=== PATIENT | female | born 1935 | race Hispanic/Latino ===

== ENCOUNTER 2019-11-15 13:29 | Outpatient (CLI) | payer MEDICARE ==
[2019-11-15] MEDS ORDERED: Magnevist 469MG/ML 20 ML VIAL ONE (13:45)
--- NOTE | 2019-11-15 14:35 | RAD ---
XR Chest 1 View HISTORY: MRI clearance loop recorder COMPARISON: None FINDINGS: The heart size is normal. The lungs are well expanded without focal areas of consolidation, pneumothorax or pleural effusions. There are postop changes of right rotator cuff surgery. A LOOP RECORDER DEVICE IS SEEN IN THE LEFT LOWER CHEST.
--- NOTE | 2019-11-15 15:38 | MRI ---
MRI OF BRAIN WITH AND WITHOUT IV CONTRAST: 11/15/19 HISTORY: Cognitive change. COMPARISON: 11/05/16. FINDINGS: No restricted diffusion is seen. Foci of T2 prolongation in the periventricular white matter, consist ent with chronic small vessel ischemic disease are again seen. No evidence of infarct, hemorrhage, ma ss, midline shift, or abnormal extra-axial fluid collection is noted. No abnormal postcontrast enhanc ement is seen. The ventricular size is stable and the basilar cisterns are patent. An empty sella is again noted. Th e visualized paranasal sinuses and mastoid air cells are well aerated. IMPRESSION: Mild chronic small vessel ischemic disease. No evidence of acute intracranial process or mass. POS: [facility]
== END 2019-11-15 13:30 | disposition home or self-care (01) ==
LOC: BICMRI 13:29
PROVIDERS: ATTEND Nurse Practitioner Acute Care
DX: R41.89 Other symptoms and signs involving cognitive functions and awareness (principal); I67.82 Cerebral ischemia
CPT/HCPCS: 70553; 71045; 82565; A9579

== ENCOUNTER 2021-02-27 15:40 | Emergency (ER) | payer OTHER, MEDICARE ==
[2021-02-27 16:21] LABS: ALT (SGPT) 12 U/L (8-55); AST (SGOT) 14 U/L (5-34); Albumin 4.2 g/dL (3.4-4.8); Alkaline Phosphatase 53 U/L (40-110); Anion Gap 14 mmol/L (10-20); BUN (Urea Nitrogen) 19 mg/dL (9.8-20.1); Bilirubin, Total 0.3 mg/dL (0.2-1.2); Calc. Creatinine Clearance 0 mL/min (70-130); Calcium 9.4 mg/dL (7.8-10.44); Carbon Dioxide 25 mmol/L (23-31); Chloride 99 mmol/L (98-107); Globulin 2.8 g/dL (2.4-3.5); Glucose 129 mg/dL (83-110); Potassium 4.7 mmol/L (3.5-5.1); Sodium 133 mmol/L (136-145)
[2021-02-27] MEDS ORDERED: Boostrix 0.5 ML (Tdap) VIAL ONE (16:35)
[2021-02-27 16:55] LABS: #Basophils 0.1 thou/uL (0.0-0.2); #Eosinphils 0.4 thou/uL (0.0-0.7); #Lymphocytes 3.1 thou/uL (1.20-3.40); #Monocytes 0.6 thou/uL (0.11-0.59); #Neutrophils 5.5 thou/uL (1.40-6.50); %Eosinophils 3.7 % (0.0-10.0); %Lymphocytes 32.1 % (21.0-51.0); %Monocytes 6.5 % (0.0-10.0); %Neutrophils 56.8 % (42.0-75.0); Mean Corpuscular HGB CONC 34.1 g/dL (32.0-36.0); Mean Corpuscular Hemoglobin 30.5 pg (27.0-31.0); Mean Corpuscular Volume 89.4 fL (78.0-98.0); Mean Platelet Volume 7.3 fL (7.4-10.4); Platelet Count 345 thou/uL (130-400); RBC Distribution Width 12.3 % (11.5-14.5); Red Blood Cell (RBC) Count 3.94 mill/uL (4.20-5.40); White Blood Cell (WBC) Count 9.8 thou/uL (4.8-10.8)
[2021-02-27 16:56] LABS: INR-International Normal Ratio 1.2
== END 2021-02-27 18:15 | disposition home or self-care (01) ==
LOC: ERS 15:40
DX: S50.01XA Contusion of right elbow, initial encounter (principal); S80.11XA Contusion of right lower leg, initial encounter; I10 Essential (primary) hypertension; R00.0 Tachycardia, unspecified; V49.9XXA Car occupant (driver) (passenger) injured in unspecified traffic accident, initial encounter
CPT/HCPCS: 36415; 70450; 71260; 72125; 74177; 80053; 85025; 85610; 85730; 90471; 90715; 93005; G0390

== ENCOUNTER 2022-03-10 14:21 | Outpatient (CLI) | payer MEDICARE | END 2022-03-10 14:22 | disposition home or self-care (01) | LOC: LABBT 14:21 | PROVIDERS: ATTEND Internal Medicine Gastroenterology | DX: Z20.822 Contact with and (suspected) exposure to COVID-19 (principal) | CPT/HCPCS: 87811 ==

== ENCOUNTER 2022-03-13 07:52 | Day surgery (SDC) | payer MEDICARE ==
[2022-03-12 08:51] VITALS: BMI 29.7
[2022-03-13] MEDS ORDERED: PROPOFOL 200 MG/20 ML VIAL ONE (10:00)
[2022-03-13] MEDS ORDERED: Lidocaine 1% PF 5 ML VIAL ONE (10:00)
[2022-03-13] MEDS ORDERED: ePHEDrine 50 MG/ML VIAL ONE (10:00)
== END 2022-03-13 11:04 | disposition home or self-care (01) ==
LOC: SDC 07:52
PROVIDERS: ATTEND Internal Medicine Gastroenterology
PROC: 0DJ08ZZ Inspection of Upper Intestinal Tract, Via Natural or Artificial Opening Endoscopic (ICD-10-PCS; principal; 2022-03-13)
PROC: 0D757ZZ Dilation of Esophagus, Via Natural or Artificial Opening (ICD-10-PCS; 2022-03-13)
DX: R13.10 Dysphagia, unspecified (principal); K25.9 Gastric ulcer, unspecified as acute or chronic, without hemorrhage or perforation; K29.70 Gastritis, unspecified, without bleeding; K21.9 Gastro-esophageal reflux disease without esophagitis; I10 Essential (primary) hypertension; E78.5 Hyperlipidemia, unspecified; I48.91 Unspecified atrial fibrillation; Z86.010 Personal history of colon polyps; Z79.82 Long term (current) use of aspirin; Z79.890 Hormone replacement therapy; Z79.899 Other long term (current) drug therapy; Z88.0 Allergy status to penicillin; Z88.1 Allergy status to other antibiotic agents; Z88.2 Allergy status to sulfonamides; Z88.5 Allergy status to narcotic agent; Z88.8 Allergy status to other drugs, medicaments and biological substances
CPT/HCPCS: J2704; J3490

== ENCOUNTER 2025-08-18 21:45 | Inpatient (IN) | payer MEDICARE ==
[2025-08-18] MEDS ORDERED: Calcium Carbonate 500 MG ChewTAB PO PRN (23:57)
[2025-08-18] MEDS ORDERED: Acetaminophen 325 MG TAB PO PRN (23:57)
[2025-08-19] MEDS ORDERED: Dextrose 50% Abboject 50 ML SYRINGE SLOW IVP PRN (00:15)
[2025-08-19] MEDS ORDERED: Glucagon 1 MG/ML KIT IM PRN (00:15)
[2025-08-19] MEDS: REMDESIVIR 200 MG in Sodium Chloride 0.9% 250 ML 210 ML IV SCH (00:47)
[2025-08-19 01:41] VITALS: BMI 36.8
[2025-08-19 05:22] LABS: #Basophils 0.08 10x3/uL (0.0-0.2); #Eosinophils Less than 0.03 10x3/uL (0.0-0.7); #Monocytes 1.38 10x3/uL (0.11-0.59); #Neutrophils 9.73 10x3/uL (1.40-6.50); %Basophils 0.6 % (0.0-1.0); %Eosinophils 0.1 % (0.0-10.0); %Lymphocytes 19.5 % (21.0-51.0); %Monocytes 9.8 % (0.0-10.0); %Neutrophils 69.1 % (42.0-75.0); Hematocrit 39.8 % (36.0-47.0); Hemoglobin 12.5 g/dL (12.0-16.0); Mean Corpuscular Hemoglobin 26.0 pg (27.0-31.0); Mean Corpuscular Volume 82.7 fL (78.0-98.0); Platelet Count 247 10x3/uL (130-400); Red Blood Cell (RBC) Count 4.81 mill/uL (4.20-5.40); White Blood Cell (WBC) Count 14.08 10x3/uL (4.8-10.8)
[2025-08-19 05:30] LABS: ALT (SGPT) 22 U/L (Less than 34); AST (SGOT) 35 U/L (11-34); Albumin 3.6 g/dL (3.1-4.5); Alkaline Phosphatase 55 U/L (40-110); Anion Gap 15 mmol/L (10-20); BUN (Urea Nitrogen) 13 mg/dL (9.8-20.1); Bilirubin, Total 0.2 mg/dL (0.3-1.2); Calc. Creatinine Clearance 45 mL/min (70-130); Calcium 8.6 mg/dL (7.8-10.44); Carbon Dioxide 24 mmol/L (23-31); Chloride 102 mmol/L (98-107); Globulin 3.6 g/dL (2.4-3.5); Glucose 163 mg/dL (83-110); Potassium 4.5 mmol/L (3.5-5.1); Sodium 136 mmol/L (136-145)
[2025-08-19] MEDS: Benzonatate 100 MG CAP PO PRN (13:03)
[2025-08-19] MEDS: Albuterol 200 PUFF (6.7GM INHALER) INH SCH (13:51)
[2025-08-19] MEDS ORDERED: Lifitegrast [Xiidra] 1 EACH Droperette EA EYE SCH (21:00)
[2025-08-19] MEDS: Pantoprazole 40 MG DR.TAB PO SCH (21:07)
[2025-08-19] MEDS: REMDESIVIR 100 MG in Sodium Chloride 0.9% 250 ML 230 ML IV SCH (21:18)
[2025-08-20] MEDS: Sertraline 25 MG TAB PO SCH (08:47)
[2025-08-20] MEDS: Lisinopril 20 MG TAB PO SCH (08:47)
[2025-08-20] MEDS: Aspirin 81 mg Enteric Coated Tablet PO SCH (08:47)
[2025-08-20] MEDS: Ondansetron PF 4 MG/2 ML Vial IVP PRN (08:50)
[2025-08-20 11:23] LABS: #Basophils Less than 0.03 10x3/uL (0.0-0.2); #Eosinophils Less than 0.03 10x3/uL (0.0-0.7); #Monocytes 0.36 10x3/uL (0.11-0.59); #Neutrophils 10.74 10x3/uL (1.40-6.50); %Basophils 0.2 % (0.0-1.0); %Eosinophils 0.0 % (0.0-10.0); %Lymphocytes 6.8 % (21.0-51.0); %Monocytes 3.0 % (0.0-10.0); %Neutrophils 89.2 % (42.0-75.0); Hematocrit 40.7 % (36.0-47.0); Hemoglobin 13.1 g/dL (12.0-16.0); Mean Corpuscular Hemoglobin 26.1 pg (27.0-31.0); Mean Corpuscular Volume 81.1 fL (78.0-98.0); Platelet Count 235 10x3/uL (130-400); Red Blood Cell (RBC) Count 5.02 mill/uL (4.20-5.40); White Blood Cell (WBC) Count 12.04 10x3/uL (4.8-10.8)
[2025-08-20 11:47] LABS: Anion Gap 18 mmol/L (10-20); BUN (Urea Nitrogen) 22 mg/dL (9.8-20.1); Calc. Creatinine Clearance 52 mL/min (70-130); Calcium 9.0 mg/dL (7.8-10.44); Carbon Dioxide 21 mmol/L (23-31); Chloride 98 mmol/L (98-107); Glucose 266 mg/dL (83-110); Potassium 4.2 mmol/L (3.5-5.1); Sodium 133 mmol/L (136-145)
[2025-08-21 04:41] LABS: #Basophils Less than 0.03 10x3/uL (0.0-0.2); #Eosinophils Less than 0.03 10x3/uL (0.0-0.7); #Monocytes 0.39 10x3/uL (0.11-0.59); #Neutrophils 11.37 10x3/uL (1.40-6.50); %Basophils 0.2 % (0.0-1.0); %Eosinophils 0.0 % (0.0-10.0); %Lymphocytes 9.4 % (21.0-51.0); %Monocytes 3.0 % (0.0-10.0); %Neutrophils 86.6 % (42.0-75.0); Hematocrit 40.9 % (36.0-47.0); Hemoglobin 13.4 g/dL (12.0-16.0); Mean Corpuscular Hemoglobin 26.0 pg (27.0-31.0); Mean Corpuscular Volume 79.4 fL (78.0-98.0); Platelet Count 296 10x3/uL (130-400); Red Blood Cell (RBC) Count 5.15 mill/uL (4.20-5.40); White Blood Cell (WBC) Count 13.11 10x3/uL (4.8-10.8)
[2025-08-21 04:50] LABS: Anion Gap 16 mmol/L (10-20); BUN (Urea Nitrogen) 26 mg/dL (9.8-20.1); Calc. Creatinine Clearance 50 mL/min (70-130); Calcium 8.8 mg/dL (7.8-10.44); Carbon Dioxide 23 mmol/L (23-31); Chloride 101 mmol/L (98-107); Glucose 246 mg/dL (83-110); Potassium 4.4 mmol/L (3.5-5.1); Sodium 136 mmol/L (136-145)
[2025-08-21] MEDS: metFORMIN 500 MG TAB PO SCH (17:51)
[2025-08-21] MEDS: Lisinopril 20 MG TAB PO SCH (22:02)
[2025-08-22] MEDS ORDERED: PNEUMOC 20-VAL CONJ-DIP CRM/PF 0.5 ML SYRINGE IM ONE (09:00)
[2025-08-22] MEDS: Lisinopril 20 MG TAB PO SCH (10:21)
[2025-08-22] MEDS: predniSONE 20 MG TAB PO SCH (10:23)
[2025-08-22] MEDS: metFORMIN 850 MG TAB PO SCH (18:23)
[2025-08-23 04:55] LABS: Anion Gap 15 mmol/L (10-20); BUN (Urea Nitrogen) 45 mg/dL (9.8-20.1); Calc. Creatinine Clearance 39 mL/min (70-130); Calcium 8.9 mg/dL (7.8-10.44); Carbon Dioxide 22 mmol/L (23-31); Chloride 103 mmol/L (98-107); Glucose 218 mg/dL (83-110); Potassium 4.4 mmol/L (3.5-5.1); Sodium 136 mmol/L (136-145)
[2025-08-23 04:58] LABS: Hematocrit 41.9 % (36.0-47.0); Hemoglobin 13.5 g/dL (12.0-16.0); Mean Corpuscular Hemoglobin 26.0 pg (27.0-31.0); Mean Corpuscular Volume 80.7 fL (78.0-98.0); Platelet Count 329 10x3/uL (130-400); Red Blood Cell (RBC) Count 5.19 mill/uL (4.20-5.40); White Blood Cell (WBC) Count 12.21 10x3/uL (4.8-10.8)
[2025-08-23] MEDS: Metoprolol Succinate XL 25 MG ER.TAB PO SCH (21:00)
[2025-08-25 05:33] LABS: #Basophils 0.08 10x3/uL (0.0-0.2); #Eosinophils 0.26 10x3/uL (0.0-0.7); #Monocytes 1.06 10x3/uL (0.11-0.59); #Neutrophils 9.14 10x3/uL (1.40-6.50); %Basophils 0.5 % (0.0-1.0); %Eosinophils 1.7 % (0.0-10.0); %Lymphocytes 28.5 % (21.0-51.0); %Monocytes 6.8 % (0.0-10.0); %Neutrophils 59.1 % (42.0-75.0); Hematocrit 44.1 % (36.0-47.0); Hemoglobin 14.5 g/dL (12.0-16.0); Mean Corpuscular Hemoglobin 25.8 pg (27.0-31.0); Mean Corpuscular Volume 78.3 fL (78.0-98.0); Platelet Count 370 10x3/uL (130-400); Red Blood Cell (RBC) Count 5.63 mill/uL (4.20-5.40); White Blood Cell (WBC) Count 15.48 10x3/uL (4.8-10.8)
[2025-08-25] MEDS ORDERED: ALPRAZolam 0.5 MG TAB PO PRN (08:11)
[2025-08-25] MEDS ORDERED: Furosemide 20 MG TAB PO PRN (08:11)
[2025-08-25] MEDS ORDERED: Metoprolol Succinate XL 25 MG ER.TAB PO SCH (08:12)
[2025-08-25] MEDS: Enoxaparin 40 MG (0.4 mL) SYRINGE SC SCH (08:47)
[2025-08-25] MEDS: Pregabalin 50 MG CAP PO SCH (08:48)
[2025-08-25] MEDS ORDERED: Non-Formulary Item 1 EACH (Pregabalin [Pregabalin] 100 MG Capsule) PO SCH (09:00)
[2025-08-25] MEDS: Metoprolol Succinate XL 50 MG ER.TAB PO SCH (22:40)
[2025-08-26 06:48] LABS: #Basophils 0.06 10x3/uL (0.0-0.2); #Eosinophils 0.35 10x3/uL (0.0-0.7); #Monocytes 1.26 10x3/uL (0.11-0.59); #Neutrophils 9.19 10x3/uL (1.40-6.50); %Basophils 0.4 % (0.0-1.0); %Eosinophils 2.3 % (0.0-10.0); %Lymphocytes 23.7 % (21.0-51.0); %Monocytes 8.4 % (0.0-10.0); %Neutrophils 61.2 % (42.0-75.0); Hematocrit 43.4 % (36.0-47.0); Hemoglobin 14.2 g/dL (12.0-16.0); Mean Corpuscular Hemoglobin 26.2 pg (27.0-31.0); Mean Corpuscular Volume 80.2 fL (78.0-98.0); Platelet Count 361 10x3/uL (130-400); Red Blood Cell (RBC) Count 5.41 mill/uL (4.20-5.40); White Blood Cell (WBC) Count 15.01 10x3/uL (4.8-10.8)
[2025-08-26 07:14] LABS: Anion Gap 18 mmol/L (10-20); BUN (Urea Nitrogen) 61 mg/dL (9.8-20.1); Calc. Creatinine Clearance 26 mL/min (70-130); Calcium 8.3 mg/dL (7.8-10.44); Carbon Dioxide 17 mmol/L (23-31); Chloride 105 mmol/L (98-107); Glucose 138 mg/dL (83-110); Potassium 4.5 mmol/L (3.5-5.1); Sodium 135 mmol/L (136-145)
[2025-08-27 07:31] LABS: #Basophils 0.06 10x3/uL (0.0-0.2); #Eosinophils 0.45 10x3/uL (0.0-0.7); #Monocytes 1.22 10x3/uL (0.11-0.59); #Neutrophils 8.71 10x3/uL (1.40-6.50); %Basophils 0.4 % (0.0-1.0); %Eosinophils 3.2 % (0.0-10.0); %Lymphocytes 22.2 % (21.0-51.0); %Monocytes 8.7 % (0.0-10.0); %Neutrophils 62.4 % (42.0-75.0); Hematocrit 39.8 % (36.0-47.0); Hemoglobin 12.5 g/dL (12.0-16.0); Mean Corpuscular Hemoglobin 25.7 pg (27.0-31.0); Mean Corpuscular Volume 81.9 fL (78.0-98.0); Platelet Count 336 10x3/uL (130-400); Red Blood Cell (RBC) Count 4.86 mill/uL (4.20-5.40); White Blood Cell (WBC) Count 13.99 10x3/uL (4.8-10.8)
[2025-08-27 07:48] LABS: Anion Gap 6 mmol/L (10-20); BUN (Urea Nitrogen) 56 mg/dL (9.8-20.1); Calc. Creatinine Clearance 34 mL/min (70-130); Calcium 7.9 mg/dL (7.8-10.44); Carbon Dioxide 18 mmol/L (23-31); Chloride 112 mmol/L (98-107); Glucose 135 mg/dL (83-110); Potassium 5.1 mmol/L (3.5-5.1); Sodium 131 mmol/L (136-145)
[2025-08-27] MEDS: Enoxaparin 30 MG (0.3 mL) SYRINGE SC SCH (08:31)
[2025-08-27 11:48] VITALS: BP 115/69; TEMP 97.6
[2025-08-27 16:29] VITALS: BMI 34.3
== END 2025-08-27 18:24 | DRG 871 ==
LOC: 2NO 22:55 → SURG B 08-23 15:53
PROVIDERS: ADMIT Student in an Organized Health Care Education/Training Program; ATTEND Internal Medicine
PROC: XW043E5 Introduction of Remdesivir Anti-infective into Central Vein, Percutaneous Approach, New Technology Group 5 (ICD-10-PCS; principal; 2025-08-19)
DX: A41.89 Other specified sepsis (principal); J12.82 Pneumonia due to coronavirus disease 2019; J96.01 Acute respiratory failure with hypoxia; U07.1 COVID-19; N17.9 Acute kidney failure, unspecified; E87.20 Acidosis, unspecified; I10 Essential (primary) hypertension; E78.5 Hyperlipidemia, unspecified; K21.9 Gastro-esophageal reflux disease without esophagitis; E03.9 Hypothyroidism, unspecified; E11.9 Type 2 diabetes mellitus without complications; F41.9 Anxiety disorder, unspecified; I48.0 Paroxysmal atrial fibrillation; R59.0 Localized enlarged lymph nodes; J40 Bronchitis, not specified as acute or chronic; I25.10 Atherosclerotic heart disease of native coronary artery without angina pectoris; Z86.73 Personal history of transient ischemic attack (TIA), and cerebral infarction without residual deficits; R79.1 Abnormal coagulation profile; Z98.890 Other specified postprocedural states; Z88.0 Allergy status to penicillin; Z88.5 Allergy status to narcotic agent; Z88.1 Allergy status to other antibiotic agents; Z88.8 Allergy status to other drugs, medicaments and biological substances; Z88.2 Allergy status to sulfonamides; Z90.710 Acquired absence of both cervix and uterus
CPT/HCPCS: 36415; 36416; 80048; 80053; 83036; 85025; 85027; J0248; J1650; J1815; J2405; J2550; J2919; J7030; J7050; J7512